=== PATIENT | female | born 1990 | race African-American/Black ===

== ENCOUNTER 2016-07-21 12:04 | Emergency (ER) | payer OTHER ==
[2016-07-21 13:05] LABS: URINE SOURCE CLEAN CATCH
[2016-07-21 13:12] LABS: URINE APPEARANCE CLOUDY; URINE BILIRUBIN NEG (NEG); URINE BLOOD NEG (NEG); URINE COLOR YELLOW; URINE GLUCOSE NEG (NEG); URINE KETONE NEG (NEG); URINE LEUKOCYTE ESTERASE NEG (NEG); URINE NITRATE NEG (NEG); URINE PH 7.5 (5-8); URINE PROTEIN NEG (NEG); URINE SPECIFIC GRAVITY 1.009 (1.003-1.035); URINE UROBILINOGEN 0.2 MG/DL (NEG)
[2016-07-21 13:15] LABS: CULTURE INDICATED? NO
[2016-07-24 00:56] LABS: CHLAMYDIA TRACH Not Detected (Not Detected); N GONOR Not Detected (Not Detected)
== END 2016-07-21 14:00 | disposition home or self-care (01) ==
LOC: CFTX 12:04 → CED 12:04 → CFTX 13:58
PROVIDERS: Physician Assistant
DX: B37.3 Candidiasis of vulva and vagina (principal)
CPT/HCPCS: 81003; 87491; 87591; 87808; 87905; 96372; 99284; J0696